=== PATIENT | male | born 1975 ===

== ENCOUNTER 2016-12-02 23:02 | Emergency (ER) | payer BC ==
[2016-12-02] MEDS ORDERED: METHYLPRED SOD SUCCINATE 125 MG VIAL ONE (23:10)
[2016-12-02] MEDS ORDERED: DIPHENHYDRAMINE HCL 50 MG/1 ML VIAL ONE (23:10)
[2016-12-02] MEDS ORDERED: FAMOTIDINE 10 MG/ML 2ML VIAL ONE ×2 (23:10→23:17)
[2016-12-02 23:23] LABS: ABSOLUTE NEUTROPHIL COUNT 3.4 K/mm3 (1.8-7.7); BASO # 0.1 K/mm3 (0.0-0.2); BASO % 0.8 % (0.2-1.0); EOS # 0.3 (0.0-0.5); EOS % 4.1 % (0.9-2.9); HEMATOCRIT 44.1 % (32.0-52.0); HEMOGLOBIN 15.2 gm/l (14.0-18.0); IMM NEUT% 0.3 % (0-1); MEAN CORPUSCULAR HGB CONC 34.5 g/dl (33.0-37.0); MEAN PLATELET VOLUME 10.3 fl (7.4-10.4); MONO # 1.1 (0.0-0.8); MONO % 13.9 % (4-12); NEUT % 42.9 % (43-75); PLATELET COUNT 175 K/mm3 (130-400); RED CELL DISTRIBUTION WIDTH 12.1 % (11.5-14.5)
[2016-12-02 23:37] LABS: CALCIUM 10.1 mg/dL (8.6-10.3)
[2016-12-03] MEDS ORDERED: SODIUM CHLORIDE 0.9% 250 ML IV ONE (00:54)
== END 2016-12-03 07:25 | disposition home or self-care (01) ==
LOC: ED 23:02
DX: T78.3XXA Angioneurotic edema, initial encounter (principal); R22.0 Localized swelling, mass and lump, head; E11.9 Type 2 diabetes mellitus without complications; E78.5 Hyperlipidemia, unspecified; E78.00 Pure hypercholesterolemia, unspecified
CPT/HCPCS: 85025; 80048; 86901; 96375 ×2; 99284 ×2; 96374; 36430; J1200; J2930; J7050; P9059 ×2